=== PATIENT | male | born 1980 | race Caucasian/White ===

== ENCOUNTER 2025-04-28 15:23 | Emergency (ER) | payer BC, SELFPAY ==
[2025-04-28 15:24] VITALS: BMI 28.5
[2025-04-28 15:36] VITALS: BP 180/95; PULSE 71; RESP 18; TEMP 36.6; O2SAT 98
--- NOTE | 2025-04-28 15:46 | EDNOTE_ITS ---
<Statement entered by Olga Lidia Fox MD - 04/29/25 17:50> As co-signing physician, I was present and available for consult prn. I concur with the plan and care as documented by the midlevel provider. ED Abdominal Pain RME/HPI General Chief Complaint: Extremity Problem,Nontraumatic Stated complaint: POSS RIGHT INGUINAL HERNIA WITH PAIN X2MO Time seen by provider: 04/28/25 15:28 Arrival date/time: 04/28/25 15:23 Source: patient, RN notes reviewed and old records reviewed Mode of arrival: ambulatory Limitations: no limitations RME / HPI RME / HPI narrative: 44yom presents to ED for 2-month history of intermittent right groin burning sensation worsened over the past 2 weeks. Patient concerned he may have an inguinal hernia, sometimes my groin seems swollen. No fever, n/v, abdominal pain, dysuria, hematuria, penile discharge or testicular pain/swelling reported. Patient has taken tylenol with mild relief. No medications or treatments today. Related Data Home Medications ?Medication ?Instructions ?Recorded ?Confirmed No Known Home Medications 11/08/2110/16 Allergies Allergy/AdvReac Type Severity Reaction Status Date / Time NKA* Allergy Uncoded 04/28/25 15:26 Review of Systems Review of Systems Systems Reviewed: All systems reviewed, normal except as documented Constitutional Constitutional: Denies chills and Denies fever(s) Gastrointestinal Gastrointestinal: Denies abdominal pain, Denies nausea and Denies vomiting Genitourinary Genitourinary: Denies dysuria, Denies hematuria, Denies penile discharge, Denies scrotal swelling and Denies testicular pain Comments: Reports right groin pain Past Medical History Past Medical History CARDIAC: Positive Hypertension Surgical History OTHER SURGICAL HX: denies pshx Social History SMOKING STATUS: Current every day smoker SUBSTANCE USE: does not use ALCOHOL: Never ED Exam General Limitations: Present no limitations General appearance: Present alert and in no apparent distress Head Head exam: Present atraumatic and normocephalic Eye Eye exam: Present normal appearance, PERRL and EOMI ENT ENT exam: Present normal exam and mucous membranes moist Neck Neck exam: Present normal inspection and full ROM Chest Chest inspection: Present normal inspection and symmetric chest wall rise Respiratory Respiratory exam: Present normal lung sounds bilaterally; Absent respiratory distress Cardiovascular Cardiovascular exam: Present regular rate and normal rhythm Abdominal Exam Abdominal exam: Present soft; Absent distention, tenderness, guarding or rebound Extremities Exam Extremities exam: Present normal inspection and full ROM Back Exam Back exam: Absent CVA tenderness (R) or CVA tenderness (L) Neurological Exam Neurological exam: Present alert and oriented X3 Psychiatric Psychiatric exam: Present normal affect and normal mood Skin Skin exam: Present warm, dry and intact Course Quality Measures none Orders Category Date Time Status CT Screening NOW Care 04/28/25 15:[address] abdomen pelvis w con Stat Exams 04/28/25 15:47 Completed CBC Stat Lab 04/28/25 15:58 Completed CMP [Comprehensive Metabolic Panel] Stat Lab 04/28/25 15:58 Completed UA [Urinalysis] Stat Lab 04/28/25 16:28 Completed Vital Signs Vital signs: Vital Signs Temperature 98 F 04/28/25 15:36 Pulse Rate 71 04/28/25 15:36 Respiratory Rate 18 04/28/25 15:36 Blood Pressure 180/95 H 04/28/25 15:36 Pulse Oximetry (%) 98 04/28/25 15:36 Oxygen Delivery Method Room Air 04/28/25 15:36 Abdominal Pain MDM MDM Narrative MDM Narrative:: 44yom presents to ED for 2-month history of intermittent right groin burning sensation worsened over the past 2 weeks. Patient concerned he may have an inguinal hernia, sometimes my groin seems swollen. No fever, n/v, abdominal pain, dysuria, hematuria, penile discharge or testicular pain/swelling reported. Patient has taken tylenol with mild relief. No medications or treatments today. Patient updated on labs and imaging. No evidence of hernia at this time. Recommended follow-up with general surgery if symptoms persist or worsen. Motrin/Tylenol prn pain. Stable for discharge, RTED precautions given. Patient data External records reviewed:: [facility] previous records (11/08/21 ED visit for hypertension) Clinical information provided by:: patient Social determinants that could affect healthcare access:: other (specify) (poor access to healthcare) Patient has the following chronic illnesses:: HTN How is presenting disease/condition affected by chronic disease/condition?: uneffected by Evaluation data The following diagnostics were reviewed and interpreted by me:: lab results and radiology exam(s) Lab and/or radiology exams considered but not ordered:: none Interpretation Summary: No leukocytosis Negative urine CT abd/pelvis: IMPRESSION: Recommend hepatobiliary sonography follow-up to assess gallbladder sludge versus stones Normal appendix Mild urinary bladder wall thickening, consider cystitis No inguinal hernia noted, given the patient's presentation, consider ultrasound soft tissue right groin and testicular sonography follow-up Dictated By: Eliazar Gaitan MD Medications / Prescriptions Medications or Prescriptions considered but not ordered:: No antibiotics recommended at this time Medication administrations:: None Consultations Consultation(s) initiated? (list below): No Diagnosis Differential diagnosis abdominal pain: other (Hernia, lymphadenopathy, UTI, groin strain, GC, epididymitis, kidney stone, scrotal cellulitis) Most likely diagnosis given after review of the tests above:: right inguinal pain Admission Indicated Admission indicated?: not indicated Admission Request Was there a request for admission?: No Disposition Plan Disposition Plan: Discharge Discharge Attestation Discharge Attestation: The patient and all family members were given an opportunity to ask questions and understood the discharge instructions. Discharge instructions specifically effects, indications for sooner follow up or return to the emergency department, and the expected course of current diagnosis. Patient condition: Stable Discharge Plan Plan Patient Disposition: HOME (Self Care) Patient condition on transfer: Stable Prescriptions/Referrals Prescriptions/Med Rec: No Action No Known Home Medications Referrals: Nicola Olivarez MD [Primary Care Provider, Family Practice] - In 1 week Dali Holloway MD [Physician, General Surgery] Referral Note: Call to schedule an appointment as needed Problem List Clinical Impression: Right inguinal pain Patient/Caregiver Discharge Instructions Education Materials: ED Groin Strain Print Language: Croatian Stand Alone Forms: Maggie Award Info., Patient Portal Info Letter PA/SHELLEY Supervising Physician SEEMA/SHELLEY Supervising Physician: Dominique
--- NOTE | 2025-04-28 15:47 | XR_ITS ---
Examination: CT abdomen with intravenous contrast CT pelvis with intravenous contrast 2-D coronal reconstructions 2-D sagittal reconstructions Date and time of exam: April 28, 2025, 1807 hours INDICATIONS: Right inguinal hernia pain beginning 2 months ago worse the last 2 weeks. CTDI: vol (mGy) 8.98 DLP: (mGycm) 573 Technique: Multiple axial sections of the abdomen and pelvis have been obtained. 64 slice high-resolution scanner used. 3 mm axial sections have been obtained, post intravenous injection 60 cc [id number] 2-D sagittal, coronal reconstructions obtained. Low dose protocols were performed. One or more of the following dose reduction techniques were used; automated exposure control, adjustment of the mA and/or KV according to patient size, use of iterative reconstruction technique. Findings: No focal liver or splenic lesions Gallbladder sludge versus small stones image 71 No pancreatic or adrenal mass Tiny bilateral renal cysts, no hydronephrosis renal or ureteral calculi Aorta normal size Normal appendix No bowel obstruction Urinary bladder wall thickening up to 6 mm No inguinal hernia depicted Grade 1 spondylolisthesis L5 on S1 IMPRESSION: Recommend hepatobiliary sonography follow-up to assess gallbladder sludge versus stones Normal appendix Mild urinary bladder wall thickening, consider cystitis No inguinal hernia noted, given the patient's presentation, consider ultrasound soft tissue right groin and testicular sonography follow-up
[2025-04-28 16:12] LABS: Basophils # (Auto) 0.1 Thou/mm3 (0.0-0.2); Basophils % (Auto) 1 % (0-2.5); Eosinophils # (Auto) 0.2 Thou/mm3 (0.0-0.5); Eosinophils % (Auto) 2 % (0-10); Hematocrit 49.8 % (41.0-53.0); Hemoglobin 16.9 g/dL (13.5-16.0); Immature Granulocytes Auto 0.02 Thou/mm3 (0.00-0.00); Lymphocytes # (Auto) 2.8 Thou/mm3 (1.0-4.8); Lymphocytes % (Auto) 28 % (10-50); Mean Corpuscular HGB Conc 33.9 g/dl (31.0-37.0); Mean Corpuscular Hemoglobin 30.5 pg (25.0-35.0); Mean Corpuscular Volume 90 fL (80-100); Monocytes # (Auto) 0.9 Thou/mm3 (0.0-0.8); Monocytes % (Auto) 9 % (0-12); Neutrophils # (Auto) 5.8 Thou/mm3 (1.8-7.7); Neutrophils % (Auto) 60 % (37-80); Nucleated Red Blood Cell # 0.00 Thou/mm3 (0.00-0.00); Nucleated Red Blood Cell % 0 /100 WBC (0); Platelet Count 212 Thou/mm3 (140-440); RDW Standard Deviation 43.3 fL (35.1-43.9); Red Blood Count 5.55 Miln/mm3 (4.50-5.90); White Blood Count 9.8 Thou/mm3 (3.8-10.6)
[2025-04-28 16:28] LABS: Alanine Aminotransferase 41 U/L (10-49); Albumin, Serum 4.9 gm/dL (3.5-5.0); Albumin/Globulin Ratio 1.9 (1.2-2.2); Alkaline Phosphatase 61 U/L (46-116); Anion Gap 6 (7-16); Aspartate Amino Transferase 36 U/L (0-34); BUN/Creatinine Ratio 14 Ratio (12-20); Bilirubin,Total 0.3 mg/dL (0.3-1.2); Blood Urea Nitrogen 15 mg/dL (9-23); Calcium 9.6 mg/dL (8.3-10.6); Calcium (Corrected) 9.6 mg/dL (8.5-10.1); Carbon Dioxide 28.4 mMol/L (20.0-31.0); Chloride 107 mMol/L (98-107); Creatinine (Component) 1.1 mg/dL (0.6-1.3); Estimated Creatinine Clearance 113.6 mL/min (>60); Globulin 2.6 gm/dL (2.3-3.5); Glucose 131 mg/dL (74-106); Osmolality,Calculated 284 (275-295); Potassium 4.4 mMol/L (3.4-5.1); Sodium 141 mMol/L (136-145); Total Protein 7.5 gm/dL (5.7-8.2); eGFR > 60 See Note
[2025-04-28 17:01] LABS: Collection Type, Urine Clean Catch; Squamous Epithelial Cell,Urine 0 /hpf (0-5); WBC,Urine 0 /hpf (0-5)
[2025-04-28 17:13] LABS: Bilirubin,Urine Negative (Negative); Blood,Urine Negative (Negative); Clarity,Urine Clear (Clear/Hazy); Color,Urine Lt-Yellow (Lt Yel-Yel); Glucose, Urine Negative (Negative); Ketones,Urine Negative (Negative); Leukocyte Esterase,Urine Negative (Negative); Nitrite,Urine Negative (Negative); PH,Urine 6.5 (5.0-7.0); Protein,Urine Negative (Neg - Trace); RBC,Urine 2 /hpf (0-3); Specific Gravity,Urine 1.020 (1.001-1.035); Urobilinogen,Urine Negative mg/dL (0.0-1.0)
[2025-04-28 19:19] VITALS: BP 167/85; PULSE 65
== END 2025-04-28 19:20 | disposition home or self-care (01) ==
PROVIDERS: Physician Assistant; Emergency Provider Emergency Medicine; PCP Family Medicine
DX: R10.31 Right lower quadrant pain (principal)
CPT/HCPCS: 36415; 74177; 80053; 81001; 85025; 99283; A4649; Q9967